=== PATIENT | female | born 1980 | race Caucasian/White ===

== ENCOUNTER 2019-11-14 09:26 | Emergency (ER) | payer SELFPAY ==
[2019-11-14 09:31] VITALS: BP 123/76; PULSE 78; RESP 18; TEMP 37.1; O2SAT 100
--- NOTE | 2019-11-14 09:45 | ED.GENADUL_ITS ---
Discharge Plan Disposition Patient Disposition: [facility] Condition: Stable Discharge Details Clinical Impression: Right ureteral calculus, Ureteropelvic junction (UPJ) obstruction, right Primary Care Provider: None,None ED Provider: Laurel Sparrow Home Meds and New Rx's Prescriptions: No Action No Known Home Meds RF: 0 Discharge Data Discharge Date/Time-TO BE ENTERED AT DEPARTURE: 11/14/19 17:30 Medical Decision Making 0940 -- 38-year-old female presents with right lower quadrant abdominal pain and vomiting since yesterday. Vitals within normal limits. She appears nontoxic. She has tenderness to palpation with rebound in the right lower quadrant. Differential diagnosis includes acute appendicitis, ovarian cyst, less likely kidney stone. Will place an IV, bolus IV fluids, screening labs, urinalysis, urine test and CT abdomen and pelvis. She declining any narcotic or nausea medication at this time. 1120 --labs reviewed. White blood cell count 11. Remainder of labs unremarkable. Patient reassessed and she is complaining of continued pain. Will give a dose of IV Tylenol. 1220 -- CT notes severe right hydronephrosis and hydroureter to the level of the distal right ureter/ureterovesical junction. Question obstructing 5 millimeter intraureteral calculus versus extrinsic mechanical compression of the ureter by phlebolith. Attempted to reach Dr. [place] multiple times with no response. [facility] urology paged. Patient reassessed and states her pain is controlled. 1400 --discussed with [facility] urology. Reviewed CT images and feels that patient needs a stent placement tonight. Recommends ceftriaxone IV dose x1 and n.p.o. Accepting physician Dr. Gomez 1600 --patient's expressed concern for cost of ambulance. He discussed with myself as well as care management and would prefer if patient could go by private car. Discussed with [facility] urology and agree that patient not appropriate for private car transfer and eventually agreeable with plan for ambulance ride. 1640 --bed now available at [facility]. Patient reassessed and pain returning. Will give another dose of IV Tylenol, IV morphine and another liter of normal saline. Patient remains hemodynamically stable and nontoxic. Patient to go by ambulance shortly. Medical Records Medical records reviewed: Yes I reviewed the patient's medical records. Imaging Data Radiologic Study: Radiologist's impression: CT ABDOMEN PELVIS W CLINICAL HISTORY: RLQ abd pain, r/o appendicitis TECHNIQUE: COMPARISON: No exams were available for comparison FINDINGS: CT examination of the abdomen and pelvis was performed with bolus infusion of 100 cc of Omnipaque 350. Images obtained through the lung bases are unremarkable. The liver, spleen, and pancreas are normal appearance. There is no biliary dilatation. Gallbladder is mildly distended but otherwise unremarkable. Abdominal aorta and major visceral branches appear normal. No significant abdominal or pelvic adenopathy. No significant abdominal wall hernia seen although the central portion of the lower abdominal muscular is patulous. Left kidney and ureter are normal in appearance, no calcification or obstruction. Adrenals appear normal bilaterally. There is marked hydronephrosis of the right kidney with perinephric fluid gerardo ection. Right ureter is dilated to the level of the ureterovesical junction. There is a 5 millimeter calculus seen in or adjacent to the ureter at the UVJ, this calculus shows a lucent center which is typically a feature of phlebolith. Accordingly, the findings could represent either an intraureteral stone, extrinsic compression of the distal ureter by a phlebolith, or a non calculus cause of obstruction at the ureterovesical junction. No intrarenal calcification identified on the right. No bladder calcification seen. Telemarketing Manager structures appear intact as visualized. Small quantity of free fluid noted in the pelvis. Appendix is normal. No evidence of diverticulitis or bowel obstruction. IMPRESSION: Severe right hydronephrosis and hydroureter to the level of the distal right ureter/ureterovesical junction. Question obstructing 5 millimeter intraureteral calculus versus extrinsic mechanical compression of the ureter by phlebolith. Please see above discussion. Lab Data Lab results reviewed: Yes I reviewed the patient's lab results. Labs: Laboratory Tests Range/Units 11/14/19 11/14/19 11/14/19 10:25 10:30 10:47 WBC (4.4-10.8) 10^3/uL 11.22 H RBC (3.93-5.22) 10^6/uL 4.18 Hgb (11.2-15.7) g/dL 12.9 Hct (36.0-46.0) % 36.6 MCV (80-95) fL 87.6 MCH (27.0-33.0) pg 30.9 MCHC (32.0-36.0) % 35.2 RDW (11.7-14.6) % 12.5 Plt Count (130-400) 10^3/uL 260 MPV (8.0-11.0) fL 9.1 Immature Gran % 0.3 Neutrophils % 87.5 Lymphocytes % 7.0 Monocytes % 5.1 Eosinophils % 0.0 Basophils % 0.1 Nucleated RBC % % 0 Absolute Neutrophils (1.2-6.7) 10^3/uL 9.82 H Absolute Lymphocytes (1.2-3.4) 10^3/uL 0.79 L Absolute Monocytes (0.1-0.8) 10^3/uL 0.57 Absolute Eosinophils (0.0-0.7) 10^3/uL 0.00 Absolute Basophils (0.0-0.2) 10^3/uL 0.01 Sodium (136-145) mmol/L 132 L Potassium (3.5-5.1) mmol/L 3.5 Chloride (98-107) mmol/L 98 Carbon Dioxide (21.0-32.0) mmol/L 23.8 Anion Gap (3-11) mmol/L 10.2 BUN (7-18) mg/dL 13 Creatinine (0.55-1.02) mg/dL 0.89 Estimated GFR/1.73 m2 (mL/min/1.73m2) >= 60.00 Glucose (74-106) mg/dL 110 H Calcium (8.5-10.1) mg/dL 8.6 Total Bilirubin (0.2-1.0) mg/dL 0.6 AST (15-37) U/L 16 ALT (14-59) U/L 19 Alkaline Phosphatase (46-116) U/L 47 Total Protein (6.4-8.2) g/dL 7.4 Albumin (3.4-5.0) g/dL 3.8 Lipase (73-393) U/L Urine Color (Yellow) Yellow Urine Clarity (Clear) Clear Urine pH (5-8) 7.0 Ur Specific [place] (1.005-1.025) 1.025 Urine Protein (Negative) mg/dL Negative Urine Ketones (Negative) mg/dL 15 H Urine Blood (Negative) Trace-intact H Urine Nitrite (Negative) Negative Urine Bilirubin (Negative) Negative Urine Urobilinogen (Up TO 0.2) EU/dL 0.2 Ur Leukocyte Esterase (Negative) Negative Urine RBC (0-2) HPF 3-5 H Urine WBC (0-5) HPF 0-2 Ur Epithelial Cells (Negative) HPF Moderate Urine Crystals (Negative) HPF Negative Urine Bacteria (Negative) HPF Few Urine Casts (Negative) LPF Negative Urine Mucus (Negative) Trace Urine Other (Negative) Negative Ur Culture Indicated? No/sq. contamination Urine Glucose (Negative) mg/dL Negative Range/Units 11/14/19 10:47 WBC (4.4-10.8) 10^3/uL RBC (3.93-5.22) 10^6/uL Hgb (11.2-15.7) g/dL Hct (36.0-46.0) % MCV (80-95) fL MCH (27.0-33.0) pg MCHC (32.0-36.0) % RDW (11.7-14.6) % Plt Count (130-400) 10^3/uL MPV (8.0-11.0) fL Immature Gran % Neutrophils % Lymphocytes % Monocytes % Eosinophils % Basophils % Nucleated RBC % % Absolute Neutrophils (1.2-6.7) 10^3/uL Absolute Lymphocytes (1.2-3.4) 10^3/uL Absolute Monocytes (0.1-0.8) 10^3/uL Absolute Eosinophils (0.0-0.7) 10^3/uL Absolute Basophils (0.0-0.2) 10^3/uL Sodium (136-145) mmol/L Potassium (3.5-5.1) mmol/L Chloride (98-107) mmol/L Carbon Dioxide (21.0-32.0) mmol/L Anion Gap (3-11) mmol/L BUN (7-18) mg/dL Creatinine (0.55-1.02) mg/dL Estimated GFR/1.73 m2 (mL/min/1.73m2) Glucose (74-106) mg/dL Calcium (8.5-10.1) mg/dL Total Bilirubin (0.2-1.0) mg/dL AST (15-37) U/L ALT (14-59) U/L Alkaline Phosphatase (46-116) U/L Total Protein (6.4-8.2) g/dL Albumin (3.4-5.0) g/dL Lipase (73-393) U/L 48 Urine Color (Yellow) Urine Clarity (Clear) Urine pH (5-8) Ur Specific [place] (1.005-1.025) Urine Protein (Negative) mg/dL Urine Ketones (Negative) mg/dL Urine Blood (Negative) Urine Nitrite (Negative) Urine Bilirubin (Negative) Urine Urobilinogen (Up TO 0.2) EU/dL Ur Leukocyte Esterase (Negative) Urine RBC (0-2) HPF Urine WBC (0-5) HPF Ur Epithelial Cells (Negative) HPF Urine Crystals (Negative) HPF Urine Bacteria (Negative) HPF Urine Casts (Negative) LPF Urine Mucus (Negative) Urine Other (Negative) Ur Culture Indicated? Urine Glucose (Negative) mg/dL HPI General Mode of arrival: ambulatory . Date/Time Provider Initiated Documentation: 11/14/19 09:28 . Limitations to Documentation: no limitations . Information obtained by: patient . HPI Narrative: Patient is a 38-year-old female who presents to the ED with a complaint of right lower quadrant abdominal pain and vomiting since yesterday. Patient states her pain started suddenly is constant and sharp. She states the pain occasionally radiates to her right flank. She states it has become less constant and slightly improved but is still 6/10. She took Tylenol yesterday without relief. She has vomited twice which was mainly food. She states she had a normal bowel movement last night without bleeding. She denies fever, urinary symptoms, diarrhea, recent travel or recent known sick contacts. She states her periods are irregular and that she just ended her last period yesterday. She denies any known . Related Data Home Medications Medication Instructions Recorded Confirmed Unknown [No Known Home Meds] 11/14/19 11/14/19 Allergies Allergy/AdvReac Type Severity Reaction Status Date / Time No Known Allergies Allergy Unverified 11/14/19 09:36 General Stated Complaint: Abd Prob TARA: 3 Review of Systems All systems reviewed & are unremarkable except as noted in HPI and below Constitutional Constitutional: Reports as per HPI, Denies chills and Denies fever(s) Eyes Eyes: Denies blurry vision ENT Ears, Nose, Mouth, and Throat: Denies dizziness, Denies sore throat and Denies throat swelling Cardiovascular Cardiovascular: Denies chest pain and Denies dyspnea Respiratory Respiratory: Denies cough and Denies dyspnea Gastrointestinal Gastrointestinal: Reports abdominal pain, Denies diarrhea and Reports vomiting Genitourinary Genitourinary: Denies hematuria and Denies dysuria Musculoskeletal Musculoskeletal: Denies back pain and Denies numbness Integumentary/Breasts Skin/Breast: Denies lesions and Denies rash Neurologic Neurologic: Denies dizziness, Denies localized weakness and Denies numbness Allergic/Immunologic Allergic/Immunologic: Denies throat swelling [facility] Medical History (Updated 11/14/19 @ 16:50 by Laurel Sparrow DO) No significant past medical history Surgical History (Updated 11/14/19 @ 10:20 by Laurel Sparrow DO) History of dilation and curettage Social History Smoking/Tobacco Use Status: Never Alcohol Intake: current Alcohol Intake frequency: holidays/special occasions only Alcohol type: wine Drug use: Never Do you feel safe at home: Yes Do you feel safe in your relationship?: Yes Exam Const General: cooperative, healthy appearing and no acute distress HENMT Head: normal to inspection Face and sinus: normal facial exam Eyes General: appearance normal, both eyes and all related structures EOM: EOM intact bilaterally Neck Neck: normal visual inspection and No submandibular swelling Lymphatic: no lymphadenopathy noted Chest Chest: normal inspection of the chest and no tenderness Resp Effort & Inspection: normal respiratory effort and able to speak in complete sentences Auscultation: clear to auscultation bilaterally Cardio Rate: regular rate Rhythm: regular rhythm GI Inspection: normal to inspection Palpation: soft, not firm, no guarding, not rigid and tender in the RLQ, at McBurney's point and with rebound tenderness Auscultation: normal bowel sounds Back/Spine/Pelvis Back: no CVA tenderness Thoracic/Lumbar Spine: thoracic and lumbar spine normal to inspection Pelvis: no pain with anterior-posterior compression Skin General skin exam: no rashes or lesions noted Neuro General: patient alert, patient awake and patient oriented x3 Cognition: normal cognition Speech: speech normal Motor: muscle tone normal throughout Sensory Exam: no sensory deficits noted Extrem General: normal to inspection, full ROM, capillary refill normal, no calf tenderness bilaterally and no edema Psych Appearance: grossly normal Mental Status: mental status grossly normal Speech and Movement: speech and movement normal Affect: normal affect Course Vital Signs Vital signs: Vital Signs Temperature 98.8 F 11/14/19 09:31 Pulse 78 11/14/19 09:31 Respiratory Rate 18 11/14/19 09:31 Blood Pressure 123/76 11/14/19 09:31 Pulse Oximetry 100 11/14/19 09:31 Temperature 98.8 F 11/14/19 09:31 Temperature Source Skin 11/14/19 09:31 Pulse 78 11/14/19 09:31 Respiratory Rate 18 11/14/19 09:31 Respiratory Effort 11/14/19 09:36 Blood Pressure 123/76 11/14/19 09:31 Blood Pressure Position Sitting 11/14/19 09:31 Pulse Oximetry 100 11/14/19 09:31 Oxygen Delivery Method Room Air 11/14/19 09:31 Oxygen Flow Rate 0 11/14/19 09:31 Pain Level 7 11/14/19 09:31
--- NOTE | 2019-11-14 10:00 | DI.CT_ITS ---
EXAM: CT ABDOMEN PELVIS W CLINICAL HISTORY: RLQ abd pain, r/o appendicitis TECHNIQUE: COMPARISON: No exams were available for comparison FINDINGS: CT examination of the abdomen and pelvis was performed with bolus infusion of 100 cc of Omnipaque 350 . Images obtained through the lung bases are unremarkable. The liver, spleen, and pancreas are normal appearance. There is no biliary dilatation. Gallbladder is mildly distended but otherwise unremarka ble. Abdominal aorta and major visceral branches appear normal. No significant abdominal or pelvic adenop athy. No significant abdominal wall hernia seen although the central portion of the lower abdominal muscular is patulous. Left kidney and ureter are normal in appearance, no calcification or obstruction. Adrenals appear no rmal bilaterally. There is marked hydronephrosis of the right kidney with perinephric fluid collection. Right ureter i s dilated to the level of the ureterovesical junction. There is a 5 millimeter calculus seen in or a djacent to the ureter at the UVJ, this calculus shows a lucent center which is typically a feature of phlebolith. Accordingly, the findings could represent either an intraureteral stone, extrinsic comp ression of the distal ureter by a phlebolith, or a non calculus cause of obstruction at the ureterove sical junction. No intrarenal calcification identified on the right. No bladder calcification seen. Technologist Development structures appear intact as visualized. Small quantity of free fluid noted in the pelvis. Appendix is normal. No evidence of diverticulitis or bowel obstruction. IMPRESSION: Severe right hydronephrosis and hydroureter to the level of the distal right ureter/ureterovesical ju nction. Question obstructing 5 millimeter intraureteral calculus versus extrinsic mechanical ceci lyric of the ureter by phlebolith. Please see above discussion. RADIATION DOSE DELIVERED: 951.15mGy.cm Total DLP
[2019-11-14 10:42] LABS: Abs Immature Grans 0.03 10^3/uL (0.0-0.06); Absolute Basophil Count 0.01 10^3/uL (0.0-0.2); Absolute Lymphocyte Count 0.79 10^3/uL (1.2-3.4); Absolute Monocyte Count 0.57 10^3/uL (0.1-0.8); Absolute Neutrophil Count 9.82 10^3/uL (1.2-6.7); Basophils % 0.1; HCT 36.6 % (36.0-46.0); HGB 12.9 g/dL (11.2-15.7); Immature Grans % 0.3; MCH 30.9 pg (27.0-33.0); MCHC 35.2 % (32.0-36.0); MCV 87.6 fL (80-95); MPV 9.1 fL (8.0-11.0); Monocytes % 5.1; Neutrophils % 87.5; Nucleated RBC 0 %; Platelet Count 260 10^3/uL (130-400); RBC 4.18 10^6/uL (3.93-5.22); RDW 12.5 % (11.7-14.6); RDW-SD 40.1 fL; WBC 11.22 10^3/uL (4.4-10.8)
[2019-11-14 10:43] LABS: Bilirubin Negative (Negative); Blood Trace-intact (Negative); Clarity Clear (Clear); Glucose Negative (Negative); Ketones 15 mg/dL (Negative); Leukocyte Esterase Negative (Negative); Nitrite Negative (Negative); Specific Gravity 1.025 (1.005-1.025); Urobilinogen 0.2 EU/dL (Up TO 0.2)
[2019-11-14 10:52] LABS: Bacteria Few HPF (Negative); Epithelial Cells Moderate HPF (Negative); Other Cells Negative (Negative); WBC 0-2 HPF (0-5)
[2019-11-14 10:52] LABS: Lipase 48 U/L (73-393)
[2019-11-14 10:53] LABS: C & S Indicated? No/Sq. Contamination; Casts Negative LPF (Negative); Crystals Negative HPF (Negative); Mucus Trace (Negative)
[2019-11-14 10:57] LABS: ALT 19 U/L (14-59); AST 16 U/L (15-37); Albumin 3.8 g/dL (3.4-5.0); Alkaline Phosphatase 47 U/L (46-116); Anion Gap 10.2 mmol/L (3-11); BUN 13 mg/dL (7-18); Bilirubin, Total 0.6 mg/dL (0.2-1.0); CO2 23.8 mmol/L (21.0-32.0); CREATININE 0.89 mg/dL (0.55-1.02); Calcium 8.6 mg/dL (8.5-10.1); Chloride 98 mmol/L (98-107); Glucose 110 mg/dL (74-106); Potassium 3.5 mmol/L (3.5-5.1); Sodium 132 mmol/L (136-145); Total Protein 7.4 g/dL (6.4-8.2)
[2019-11-14 11:23] VITALS: BP 103/64; PULSE 67; RESP 20; O2SAT 100
[2019-11-14] MEDS: ACETAMINOPHEN 1,000 MG/100 ML BTL 400 MG IVPB ×2 (11:39→17:14)
[2019-11-14] MEDS: Omnipaque 350 MG/ML 100 ML BTL IJ (11:56)
[2019-11-14] MEDS: Normal Saline - Diluent 50 ML VIAL IV (11:57)
[2019-11-14 14:11] VITALS: BP 98/55; PULSE 72; RESP 20; TEMP 36.9; O2SAT 100
[2019-11-14] MEDS: Normal Saline Flush 10 ML SYR IVP (16:12)
[2019-11-14] MEDS: Normal Saline 1,000 ML 1000 ML IV ×2 (16:15→17:15)
[2019-11-14 16:24] VITALS: BP 102/50; PULSE 71; RESP 16; TEMP 36.6; O2SAT 98
--- NOTE | 2019-11-14 16:51 | PDOC.ERCMPRO ---
- If Service Date Differs Date of service: 11/14/19 Time of Service: 16:51 Care Management Progress Note At the request of ED provider, NELL telephones Yeni's , Maco, to address his financial concerns. Maco reports they have 8 children, a net annual salary of about $16,000 and no health insurance. NELL discusses financial assistance offered by both [facility] and [facility], where Yeni is being transferred for further evaluation and treatment. We also briefly discuss health insurance and Maco confirms the family does not have health insurance as they are [place] and it is against the beliefs of their culture. NELL forwards [facility] and [facility] applications for patient assistance to Maco via mail. Maco will further discuss the necessity for the transfer to be done by ambulance vs. private car with Dr. Sparrow.
[2019-11-14] MEDS: cefTRIAXone 1 GM/50 ML BAG IVPB (16:55)
[2019-11-14 17:32] VITALS: BP 102/50; PULSE 71; RESP 16; TEMP 36.6; O2SAT 98
== END 2019-11-14 17:30 | disposition short-term general hospital (02) ==
PROVIDERS: Emergency Provider Physician Assistant
DX: N13.2 Hydronephrosis with renal and ureteral calculous obstruction (principal); N13.4 Hydroureter; R10.823 Right lower quadrant rebound abdominal tenderness; R11.2 Nausea with vomiting, unspecified
CPT/HCPCS: 36415; 80053; 81025; 83690; 96361; 96365; 96367; 96375; 99285; 74177; 81003; 81015; 85025; J0131; J0696; J3490